=== PATIENT | male | born 1960 | race Caucasian/White ===

== ENCOUNTER 2016-12-08 14:12 | Inpatient (IN) | payer MEDICAID ==
[~2016-12-08] VITALS: Ht 170.2 cm; Wt 79.4 kg
[2016-12-08] MEDS: IPRATROPIUM/ALBUTEROL 0.5-3(2.5)MG/3ML NEB INH SCH (00:50)
[2016-12-08] MEDS ORDERED: IBUP-2030 PO (14:18)
[2016-12-08] MEDS ORDERED: ACETAMINOPHEN 325MG TABLET PO STA (14:48)
[2016-12-08] MEDS ORDERED: LEVOFLOXACIN 750MG PREMIX 150 ML IV ONE (15:00)
[2016-12-08] MEDS ORDERED: SODIUM CHLORIDE 0.9% 1000ML BAG (SEPSIS BOLUS) IV ONE (15:00)
[2016-12-08] MEDS ORDERED: IPRATROPIUM/ALBUTEROL 0.5-3(2.5)MG/3ML NEB HHN ONE (15:00)
[2016-12-08 15:10] LABS: HEMOGLOBIN. 16.2 g/dL (14.0-18.0); MEAN CORPUSCULAR HEMOGLOBIN 33.8 pg (28.0-32.0); MEAN CORPUSCULAR VOLUME 98.1 fL (80.0-94.0); MEAN PLATELET VOLUME 8.8 fl (7.4-10.4); PLATELET 136 x1000/uL (130-400); RED BLOOD CELL COUNT 4.79 mill/uL (4.7-6.1)
[2016-12-08 15:15] LABS: INR 1.3; PROTHROMBIN TIME 13.6 sec (9.4-11.6)
[2016-12-08 15:19] LABS: CARBON DIOXIDE 23 mEq/L (21-32); CHLORIDE 103 mEq/L (98-107); ETHANOL BLOOD < 10 mg/dL
[2016-12-08 15:23] LABS: CREATINE KINASE 431 IU/L (39-308)
[2016-12-08 16:56] LABS: PLATELET ESTIMATE NORMAL
[2016-12-08 19:18] LABS: CLARITY URINE CLOUDY (CLEAR); COLOR URINE DARK YELLOW (YELLOW); GLUCOSE URINE NEGATIVE (NEGATIVE); KETONES URINE NEGATIVE (NEGATIVE); LEUKOCYTE ESTERASE URINE NEGATIVE (NEGATIVE); NITRITE URINE NEGATIVE (NEGATIVE); OCCULT BLOOD URINE 1+ (NEGATIVE); PROTEIN URINE 1+ (NEGATIVE); SPECIFIC GRAVITY URINE 1.026 (1.005-1.030)
[2016-12-08 19:43] LABS: *AMPHETAMINES SCREEN URINE PRESUMTIVE POSITIVE (NEGATIVE); *BARBITURATES SCREEN URINE NEGATIVE (NEGATIVE); *BENZODIAZEPINES SCREEN URINE NEGATIVE (NEGATIVE); *COCAINE SCREEN URINE NEGATIVE (NEGATIVE); CANNABINOID URINE SCREEN NEGATIVE (NEGATIVE); METHADONE URINE SCREEN NEGATIVE (NEGATIVE); OPIATES URINE SCREEN NEGATIVE (NEGATIVE); PHENCYCLIDINE URINE SCREEN NEGATIVE (NEGATIVE)
[2016-12-08 20:20] VITALS: BP 102/76
[2016-12-08] MEDS ORDERED: IPRATROPIUM/ALBUTEROL 0.5-3(2.5)MG/3ML NEB INH PRN (21:30)
[2016-12-08] MEDS ORDERED: NA PHOS,M-B/NA PHOS,DI-BA ENEMA 118ML PR PRN (21:30)
[2016-12-08] MEDS ORDERED: DIPHENHYDRAMINE 50MG/ML VIAL IV PRN (21:30)
[2016-12-08] MEDS ORDERED: GUAIFENESIN 200MG/10ML SUGAR FREE UDC PO PRN (21:30)
[2016-12-08] MEDS ORDERED: ONDANSETRON HCL 4MG/2ML VIAL IV PRN (21:30)
[2016-12-08] MEDS ORDERED: ACETAMINOPHEN 650MG/20.3ML UDC GT PRN (21:30)
[2016-12-08] MEDS ORDERED: ACETAMINOPHEN 650MG SUPP PR PRN (21:30)
[2016-12-08] MEDS ORDERED: MAGNESIUM/ALUMINUM HYDROXIDE/SIMETHICONE 30ML UDC PO PRN (21:30)
[2016-12-08] MEDS ORDERED: DOCUSATE SODIUM 100MG CAPSULE PO PRN (21:30)
[2016-12-08] MEDS: SODIUM CHLORIDE 0.9% 1,000 ML IV SCH (22:07)
[2016-12-09] VITALS: BP 102/75
[2016-12-09] MEDS: CEFTRIAXONE 1 G PREMIX 50 ML IV SCH (00:21)
[2016-12-09] MEDS ORDERED: VANCOMYCIN 1250MG in DEXTROSE 5% WATER 250ML IV SCH ×3 (01:00→18:00)
[2016-12-09 01:11] LABS: TROPONIN I 0.13 ng/mL (0.00-0.04)
[2016-12-09] MEDS: HYDROCODONE/ACETAMINOPHEN 5/325MG TABLET PO PRN ×3 (02:11→17:50)
[2016-12-09 04:00] VITALS: BP 111/80
[2016-12-09 08:00] VITALS: BP 96/65
[2016-12-09] MEDS: IPRATROPIUM/ALBUTEROL 0.5-3(2.5)MG/3ML NEB INH SCH ×4 (08:06→21:58)
[2016-12-09] MEDS: ENOXAPARIN 40MG/0.4ML SYR SUBCUT SCH (09:21)
[2016-12-09] MEDS: AZITHROMYCIN 500MG in DEXTROSE 5% WATER 250ML IV SCH (10:47)
[2016-12-09 10:59] LABS: BASOPHILS % 0.5 % (0.0-2.0); EOSINOPHILS % 3.3 % (0.0-5.0); HEMATOCRIT. 47.5 % (42.0-52.0); HEMOGLOBIN. 16.1 g/dL (14.0-18.0); LYMPHOCYTES % 8.3 % (20.0-50.0); MEAN CORPUSCULAR HEMOGLOBIN 33.7 pg (28.0-32.0); MEAN CORPUSCULAR VOLUME 99.4 fL (80.0-94.0); MEAN PLATELET VOLUME 9.4 fl (7.4-10.4); MONOCYTES % 4.7 % (2.0-8.0); NEUTROPHILS % 83.2 % (40.0-76.0); PLATELET 97 x1000/uL (130-400); RED BLOOD CELL COUNT 4.78 mill/uL (4.7-6.1)
[2016-12-09 11:13] LABS: CARBON DIOXIDE 24 mEq/L (21-32); CHLORIDE 105 mEq/L (98-107); CREATINE KINASE 248 IU/L (39-308); HDL CHOLESTEROL 16 mg/dL (40-59); LDL CHOLESTEROL 65 mg/dL (5-100); T4 FREE 1.25 ng/dL (0.76-1.46); TROPONIN I 0.08 ng/mL (0.00-0.04)
[2016-12-09] MEDS ORDERED: SODIUM CHLORIDE 0.9% 10ML VIAL ONE (11:53)
[2016-12-09] MEDS ORDERED: IOHEXOL-350 100 ML BOTTLE ONE (11:53)
[2016-12-09 12:00] VITALS: BP 95/68
[2016-12-09] MEDS: SODIUM CHLORIDE 0.9% 1,000 ML IV SCH ×2 (14:25→18:00)
[2016-12-09 16:00] VITALS: BP 121/86
[2016-12-09] MEDS ORDERED: LEVOFLOXACIN 250MG PREMIX 50 ML IV SCH (16:00)
[2016-12-09 20:00] VITALS: BP 128/93
[2016-12-10] VITALS (7 sets, daily range): BP systolic 129–155; BP diastolic 90–104
[2016-12-10] MEDS: CEFTRIAXONE 1 G PREMIX 50 ML IV SCH (00:32)
[2016-12-10] MEDS: HYDROCODONE/ACETAMINOPHEN 5/325MG TABLET PO PRN ×3 (00:32→20:09)
[2016-12-10] MEDS: IPRATROPIUM/ALBUTEROL 0.5-3(2.5)MG/3ML NEB INH SCH ×4 (01:43→20:08)
[2016-12-10] MEDS ORDERED: VANCOMYCIN 1250MG in DEXTROSE 5% WATER 250ML IV SCH (06:00)
[2016-12-10] MEDS: SODIUM CHLORIDE 0.9% 1,000 ML IV SCH ×2 (06:04→22:49)
[2016-12-10 06:57] LABS: HEMATOCRIT. 43.8 % (42.0-52.0); HEMOGLOBIN. 15.1 g/dL (14.0-18.0); MEAN CORPUSCULAR HEMOGLOBIN 33.6 pg (28.0-32.0); MEAN CORPUSCULAR VOLUME 97.7 fL (80.0-94.0); MEAN PLATELET VOLUME 11.2 fl (7.4-10.4); PLATELET 86 x1000/uL (130-400); RED BLOOD CELL COUNT 4.48 mill/uL (4.7-6.1); RED CELL DISTRIBUTION WIDTH 13.1 % (11.6-14.6)
[2016-12-10 07:27] LABS: CARBON DIOXIDE 23 mEq/L (21-32); CHLORIDE 106 mEq/L (98-107)
[2016-12-10 07:29] LABS: CREATINE KINASE MB FRACTION 1.2 ng/mL (0.5-3.6)
[2016-12-10] MEDS: AZITHROMYCIN 500MG in DEXTROSE 5% WATER 250ML IV SCH (09:58)
[2016-12-10] MEDS: ENOXAPARIN 40MG/0.4ML SYR SUBCUT SCH (09:58)
[2016-12-10] MEDS ORDERED: GADOBENATE DIMEGLUMINE 529 MG/ML 10ML IV ONE (11:49)
[2016-12-10] MEDS: CLONIDINE 0.1MG TABLET PO PRN (12:35)
[2016-12-10] MEDS: ACETAMINOPHEN 325MG TABLET PO PRN (12:36)
[2016-12-10 12:59] LABS: NUCLEATED RED BLOOD CELLS 1 /100 WBC
[2016-12-10 13:00] LABS: PLATELET ESTIMATE NORMAL
[2016-12-10] MEDS: PENICILLIN POTASSIUM IV SCH ×2 (19:55→22:47)
[2016-12-10] MEDS: WATER IV SCH ×2 (19:55→22:47)
[2016-12-10] MEDS: DEXT 5% IV SCH ×2 (19:55→22:47)
[2016-12-11] VITALS (8 sets, daily range): BP systolic 130–183; BP diastolic 87–125
[2016-12-11] MEDS: HYDROCODONE/ACETAMINOPHEN 5/325MG TABLET PO PRN ×4 (00:28→23:01)
[2016-12-11] MEDS: DEXT 5% IV SCH ×6 (02:45→21:46)
[2016-12-11] MEDS: WATER IV SCH ×6 (02:45→21:46)
[2016-12-11] MEDS: IPRATROPIUM/ALBUTEROL 0.5-3(2.5)MG/3ML NEB INH SCH ×3 (02:45→20:07)
[2016-12-11] MEDS: PENICILLIN POTASSIUM IV SCH ×6 (02:45→21:46)
[2016-12-11 07:06] LABS: HEPATITIS B SURFACE ANTIGEN NEGATIVE
[2016-12-11 07:35] LABS: HEPATITIS B CORE AB IGM NEGATIVE
[2016-12-11 07:36] LABS: HEPATITIS A AB IGM NEGATIVE (NEGATIVE)
[2016-12-11] MEDS: ENOXAPARIN 40MG/0.4ML SYR SUBCUT SCH (09:42)
[2016-12-11] MEDS: CLONIDINE 0.1MG TABLET PO PRN ×3 (09:46→18:29)
[2016-12-11] MEDS: ACETAMINOPHEN 325MG TABLET PO PRN (13:29)
[2016-12-11] MEDS: SODIUM CHLORIDE 0.9% 1,000 ML IV SCH (17:20)
[2016-12-11] MEDS: ZOLPIDEM TARTRATE 5MG TABLET PO PRN (23:01)
[2016-12-12] VITALS: BP_SYST 115; BP_SYST 174; BP_DIAS 121; BP_DIAS 56
[2016-12-12] MEDS: IPRATROPIUM/ALBUTEROL 0.5-3(2.5)MG/3ML NEB INH SCH ×4 (01:54→21:03)
[2016-12-12] MEDS: WATER IV SCH ×4 (01:59→13:21)
[2016-12-12] MEDS: DEXT 5% IV SCH ×4 (01:59→13:21)
[2016-12-12] MEDS: PENICILLIN POTASSIUM IV SCH ×4 (01:59→13:21)
[2016-12-12 04:00] VITALS: BP_SYST 119; BP_SYST 145; BP_DIAS 103; BP_DIAS 90
[2016-12-12] MEDS: CLONIDINE 0.1MG TABLET PO PRN ×2 (04:02→20:10)
[2016-12-12] MEDS: ACETAMINOPHEN 325MG TABLET PO PRN (04:46)
[2016-12-12 08:00] VITALS: BP 132/96
[2016-12-12] MEDS: ENOXAPARIN 40MG/0.4ML SYR SUBCUT SCH (08:24)
[2016-12-12] MEDS: SODIUM CHLORIDE 0.9% 1,000 ML IV SCH ×2 (09:05→13:21)
[2016-12-12] MEDS ORDERED: PENICILLIN G POTASSIUM 5 MMU in DEXT 5% WATER 100 ML IV SCH (10:00)
[2016-12-12 12:00] VITALS: BP_SYST 160; BP_SYST 170; BP_DIAS 100; BP_DIAS 105
[2016-12-12] MEDS: HYDROCODONE/ACETAMINOPHEN 5/325MG TABLET PO PRN ×2 (13:34→20:11)
[2016-12-12] MEDS ORDERED: PENICILLIN POTASSIUM IV SCH (14:00)
[2016-12-12] MEDS ORDERED: WATER IV SCH (14:00)
[2016-12-12] MEDS ORDERED: DEXT 5% IV SCH (14:00)
[2016-12-12] MEDS: PENICILLIN G POTASSIUM 5 MMU in DEXT 5% WATER 100 ML IV SCH ×3 (14:29→21:45)
[2016-12-12 16:00] VITALS: BP 147/108
[2016-12-12 18:08] LABS: HEMOGLOBIN. 14.5 g/dL (14.0-18.0); MEAN CORPUSCULAR HEMOGLOBIN 33.4 pg (28.0-32.0); MEAN CORPUSCULAR VOLUME 98.7 fL (80.0-94.0); MEAN PLATELET VOLUME 10.2 fl (7.4-10.4); PLATELET 158 x1000/uL (130-400); RED BLOOD CELL COUNT 4.36 mill/uL (4.7-6.1); RED CELL DISTRIBUTION WIDTH 13.4 % (11.6-14.6)
[2016-12-12 18:43] LABS: CARBON DIOXIDE 25 mEq/L (21-32); CHLORIDE 105 mEq/L (98-107)
[2016-12-12 20:00] VITALS: BP 169/115
[2016-12-12] MEDS: ZOLPIDEM TARTRATE 5MG TABLET PO PRN (20:10)
[2016-12-12 20:14] LABS: ATYPICAL LYMPHOCYTES 1; PLATELET ESTIMATE NORMAL
[2016-12-13] VITALS: BP 151/88
[2016-12-13] MEDS: PENICILLIN G POTASSIUM 5 MMU in DEXT 5% WATER 100 ML IV SCH ×6 (01:47→22:07)
[2016-12-13] MEDS: IPRATROPIUM/ALBUTEROL 0.5-3(2.5)MG/3ML NEB INH SCH ×4 (02:30→20:36)
[2016-12-13 04:00] VITALS: BP 135/92
[2016-12-13 07:37] LABS: HEMATOCRIT. 42.5 % (42.0-52.0); HEMOGLOBIN. 14.3 g/dL (14.0-18.0); MEAN CORPUSCULAR HEMOGLOBIN 33.5 pg (28.0-32.0); MEAN CORPUSCULAR VOLUME 99.4 fL (80.0-94.0); PLATELET 210 x1000/uL (130-400); RED BLOOD CELL COUNT 4.27 mill/uL (4.7-6.1); RED CELL DISTRIBUTION WIDTH 13.2 % (11.6-14.6)
[2016-12-13 08:00] VITALS: BP_SYST 149; BP_SYST 189; BP_DIAS 117; BP_DIAS 54
[2016-12-13] MEDS: ENOXAPARIN 40MG/0.4ML SYR SUBCUT SCH (09:04)
[2016-12-13 09:05] LABS: CARBON DIOXIDE 27 mEq/L (21-32); CHLORIDE 103 mEq/L (98-107)
[2016-12-13 12:00] VITALS: BP 148/87
[2016-12-13] MEDS: SODIUM CHLORIDE 0.9% 1,000 ML IV SCH (12:58)
[2016-12-13 16:00] VITALS: BP 158/109
[2016-12-13 16:58] LABS: PLATELET ESTIMATE NORMAL
[2016-12-13] MEDS: CLONIDINE 0.1MG TABLET PO PRN (18:44)
[2016-12-13] MEDS: HYDROCODONE/ACETAMINOPHEN 5/325MG TABLET PO PRN (18:45)
[2016-12-13 20:00] VITALS: BP 139/90
[2016-12-13] MEDS ORDERED: LEVO500T2 PO (20:13)
[2016-12-14] VITALS: BP 136/89
[2016-12-14] MEDS: ZOLPIDEM TARTRATE 5MG TABLET PO PRN (00:04)
[2016-12-14] MEDS: ACETAMINOPHEN 325MG TABLET PO PRN (00:04)
[2016-12-14] MEDS: PENICILLIN G POTASSIUM 5 MMU in DEXT 5% WATER 100 ML IV SCH ×3 (01:49→09:18)
[2016-12-14] MEDS: IPRATROPIUM/ALBUTEROL 0.5-3(2.5)MG/3ML NEB INH SCH (02:56)
[2016-12-14 04:00] VITALS: BP 126/85
[2016-12-14] MEDS ORDERED: TRAMADOL 50MG TABLET PO PRN (06:45)
[2016-12-14 08:00] VITALS: BP 167/111
[2016-12-14] MEDS: ENOXAPARIN 40MG/0.4ML SYR SUBCUT SCH (09:18)
[2016-12-14] MEDS: CLONIDINE 0.1MG TABLET PO PRN (09:18)
[2016-12-14] MEDS: SODIUM CHLORIDE 0.9% 1,000 ML IV SCH (11:29)
[2016-12-14 12:00] VITALS: BP 148/109
[2016-12-14 12:42] VITALS: BP 148/109
== END 2016-12-14 13:45 | disposition home or self-care (01) | DRG 720 ==
LOC: ER 16:20 → EDBEDREQTM 17:27 → EDBEDREQSVC 17:27 → EDBEDREQ 17:27 → 8WST 17:29 → ENRESERV 17:42
PROVIDERS: ADMIT Family Medicine; ATTEND Family Medicine
DX: A40.9 Streptococcal sepsis, unspecified (principal); N17.0 Acute kidney failure with tubular necrosis; J96.00 Acute respiratory failure, unspecified whether with hypoxia or hypercapnia; E43 Unspecified severe protein-calorie malnutrition; I50.43 Acute on chronic combined systolic (congestive) and diastolic (congestive) heart failure; E87.2 Acidosis; D69.6 Thrombocytopenia, unspecified; T40.5X1A Poisoning by cocaine, accidental (unintentional), initial encounter; I13.0 Hypertensive heart and chronic kidney disease with heart failure and stage 1 through stage 4 chronic kidney disease, or unspecified chronic kidney disease; E83.52 Hypercalcemia; B95.3 Streptococcus pneumoniae as the cause of diseases classified elsewhere; F15.90 Other stimulant use, unspecified, uncomplicated; F10.10 Alcohol abuse, uncomplicated; F17.210 Nicotine dependence, cigarettes, uncomplicated; N18.9 Chronic kidney disease, unspecified; R79.1 Abnormal coagulation profile; Z82.49 Family history of ischemic heart disease and other diseases of the circulatory system; Z90.81 Acquired absence of spleen; Z68.27 Body mass index [BMI] 27.0-27.9, adult
CPT/HCPCS: 36415; 71010; 71275; 72050; 72156; 72157; 72158; 73030; 76770; 80048; 80053; 80061; 80305; 81001; 82550; 82553; 83036; 83605; 83880; 84439; 84443; 84484; 85025; 85362; 85379; 85384; 85610; 85651; 86022; 86140; 86705; 86709; 86803; 87040; 87077; 87086; 87186; 87340; 93005; 93306; 93970; 93971; 94640; 94664; 96374; 99285; A4216; A9577; G0482; J0456; J0696; J1650; J1956; J2540; J3370; J7030; J7050; J7060; J7620; Q9967